=== PATIENT | female | born 1970 | race Caucasian/White ===

== ENCOUNTER → 2016-09-12 | Outpatient (CLI) | payer OTHER ==
--- NOTE | 2016-09-12 14:03 | KCIC ---
Diagnostic digital mammograms left breast: Reason for examination: Small nodular parenchymal density on screening mammogram. Comparison is made to previous exam dated 08/27/2016. Coned compression views were obtained in CC and obliques projections. A small parenchymal density persists in the superior left breast approximately 6 centimeters from the nipple and appears to measure approximately 1.4 centimeters in greatest dimension. This contains no calcifications. Further evaluation with ultrasound will follow. Impression: Small nodule in the anterior superior left breast on oblique projection probably around the 12 o'clock position. Ultrasound to follow. BI-RADS category 0: Incomplete. Ultrasound to follow. Left breast ultrasound: Ultrasound examination of the left breast was performed of the entire breast including the retroareolar and axillary regions. In the 12 o'clock position 6 centimeters from the nipple, there appears to be a hypoechoic circumscribed lesion measuring 1.3 centimeters in greatest dimension with some mild posterior acoustic enhancement. The appearance 6 suggests a small fibroadenoma. In the 11 o'clock position 5 centimeters from the nipple, there is a 6.1 millimeter fibrocystic type lesion present. No other focal or suspicious lesions are seen. No abnormal lymph nodes are seen in the axilla. Impression: Small benign appearing nodular densities at the 12 o'clock position 6 centimeters from the nipple probably representing a fibroadenoma and in the 11 o'clock position 5 centimeters from the nipple probably representing a small fibrocystic lesion. No suspicious lesions seen. Recommend six-month sonographic followup. BI-RADS category 3: Probably benign. This patient's information has been entered into a reminder system for the patient to be notified with the results of this examination and a target date for her next mammograms. Electronically signed by: Stephany Velázquez MD (Sep 12, 2016 14:01:48)
== END | disposition home or self-care (01) ==
LOC: KCIC MAMMO 09:41
PROVIDERS: ATTEND Preventive Medicine Public Health & General Preventive Medicine
DX: R92.8 Other abnormal and inconclusive findings on diagnostic imaging of breast (principal); N63 Unspecified lump in breast
CPT/HCPCS: 76641; G0206

== ENCOUNTER → 2017-03-29 | Outpatient (CLI) | payer OTHER ==
--- NOTE | 2017-04-17 13:32 | KCIC ---
Left breast ultrasound: Reason for examination: Follow-up nodules. Comparison is made to previous study dated 09/12/2016. Ultrasound examination of the left breast and left axilla was performed. At the 11:00 position 5 cm from the nipple, there continues to be a small 4.8 mm hypoechoic nodule which shows a slight decrease in overall size. In the 12:00 position 6 cm from the nipple, there continues to be a small hypoechoic nodule measuring 1.1 x 0.95 cm in greatest dimension. This shows a slight decrease in overall size. No new cystic or solid lesions are seen. No abnormal appearing lymph nodes are seen in the left axilla. IMPRESSION: Continued presence of small nodules at the 11:00 and 12:00 positions which both show a slight decrease in overall size. These are again consistent with benign fibrocystic lesions or fibroadenoma. No suspicious lesions are seen. Recommend routine mammographic follow-up. BI-RADS Category 2: Benign. "Our facility is accredited by the [employer] Mammography Program." This patient's information has been entered into a reminder system for the patient to be notified with the results of her examination and a target date for the next mammogram. Electronically signed by: Adela Velázquez MD (04/17/2017 1:29 PM) [facility]
== END | disposition home or self-care (01) ==
LOC: KCIC US 12:25
PROVIDERS: ATTEND Preventive Medicine Public Health & General Preventive Medicine
DX: R92.8 Other abnormal and inconclusive findings on diagnostic imaging of breast (principal)
CPT/HCPCS: 76641

== ENCOUNTER → 2017-10-07 | Outpatient (CLI) | payer OTHER | END | disposition home or self-care (01) | LOC: KCIC MAMMO 12:00 | DX: Z12.31 Encounter for screening mammogram for malignant neoplasm of breast (principal); N63.10 Unspecified lump in the right breast, unspecified quadrant | CPT/HCPCS: 77063; 77067 ==

== ENCOUNTER → 2017-10-08 | Outpatient (CLI) | payer OTHER | END | disposition home or self-care (01) | LOC: KCIC US 11:37 | DX: N63.10 Unspecified lump in the right breast, unspecified quadrant (principal) | CPT/HCPCS: 76641 ==

== ENCOUNTER → 2018-04-24 | Outpatient (CLI) | payer OTHER ==
--- NOTE | 2018-04-25 14:37 | KCIC ---
CLINICAL INDICATION: ANGELA FARRELL, who is 48 years of age, presents for short-term imaging followup of a probably benign finding in the right breast. COMPARISON: Prior mammographic imaging dating back to 10/08/2017, 10/07/2017, 03/29/2017, 09/12/2016, 08/27/2016 TECHNIQUE: Full-field to the CC and MLO views of the right breast were obtained using digital technique. Full-field CC and MLO tomographic images of the right breast were also obtained using digital technique. BREAST COMPOSITION: Breast density category C: The breast tissue is heterogenously dense, which could obscure detection of small masses. MAMMOGRAM FINDINGS: The previously seen retroareolar nodule is not well delineated by mammography. Architectural distortion is seen in the medial and superior right breast best seen on the tomographic views approximately 9 cm from the nipple. No suspicious microcalcifications are seen. The visualized axilla appears unremarkable. Ultrasound was therefore performed to further evaluate a retroareolar nodule and the architectural distortion in the medial superior right breast. ULTRASOUND FINDINGS: ULTRASOUND FINDINGS: Targeted ultrasound of the mammographic area of concern was performed. 9:00 position, 1 cm from the nipple: A near anechoic mass of circumscribed margins and internal homogeneous low level echoes is present with parallel orientation and is of oval/round shape. There is no internal vascularity on Doppler interrogation. It demonstrates posterior acoustic enhancement and measures 5 x 3 x 4 mm, previously 3 x 3 x 3 mm. 9:30 position, 4.5 cm from the nipple: Parenchymal tissue of normal echotexture is present. The previously seen 3 mm hypoechoic lesion is no longer seen and has likely resolved. 8:00 position, 4.5 cm from the nipple: Parenchymal tissue of normal echotexture, likely normal fibrocystic change. Upper outer right breast, posterior depth: Parenchymal tissue of normal echotexture is present. IMPRESSION: 1. Right breast probably benign asymmetry/architectural distortion for which follow up is recommended. 2. The retroareolar hypoechoic structure, likely complex cyst is grossly stable. RECOMMENDATION: In the absence of new clinical symptoms or change in physical exam, short term follow up diagnostic examination with 3-D CC and MLO views of the right breast with right breast ultrasound is recommended in 6 months to assess for interval stability. At this time she will be due for screening evaluation of the contralateral breast. BI-RADS 3: PROBABLY BENIGN Electronically signed by: Richie Richardson MD (04/25/2018 2:33 PM) [facility]
== END | disposition home or self-care (01) ==
LOC: KCIC MAMMO 12:56
PROVIDERS: ATTEND Preventive Medicine Public Health & General Preventive Medicine
DX: R92.8 Other abnormal and inconclusive findings on diagnostic imaging of breast (principal)
CPT/HCPCS: 76641; 77065; G0279; 77061

== ENCOUNTER → 2019-07-16 | Outpatient (CLI) | payer OTHER ==
--- NOTE | 2019-07-16 16:02 | KCIC ---
Bilateral diagnostic digital mammograms with 3-D tomosynthesis: Reason for examination: Follow-up nodule and follow-up architectural distortion. Comparison is made to previous studies dated back to 08/27/2016. Bilateral mammograms in CC and oblique projections were obtained with 2-D imaging and 3-D tomosynthesis imaging on a Siemens Inspiration unit and reviewed on the workstation. Interpretation was made with the benefit of CAD. The skin and nipples show no abnormalities. No abnormal axillary lymph nodes are seen. The breast parenchyma is extremely dense. (Breast density: Category D.) There are no dominant masses, suspicious calcifications or architectural distortion. Impression: No evidence of malignancy. Ultrasound to follow. Your patient's mammogram demonstrates that she has dense breast tissue (breast density category C or D), which could hide abnormalities, and if she has other risk factors for breast cancer that have been identified, she might benefit from supplemental screening tests that may be suggested by you as her ordering physician. Dense breast tissue, in and of itself, is a relatively common condition. Therefore, this information is not provided to cause undue concern, but rather to raise your awareness and to promote discussion with your patient regarding the presence of other risk factors, in addition to dense breast tissue. Your patient's mammography results will be sent to her. BI-RAD Category 0: Incomplete. Needs additional imaging evaluation. Right breast ultrasound: Comparison is made to previous study dated 04/24/2018 and 10/08/2017. Right whole breast ultrasound including evaluation of all 4 quadrants and the retroareolar and axillary regions of the right breast was performed. There is ductal ectasia in the retroareolar 12:00 position. There is a small 10 x 6.3 mm hypoechoic lesion with fibrocystic appearance at the 9:30 position 7 cm from the nipple. No other cystic or solid lesions are seen. No abnormal appearing lymph nodes are seen in the axilla. IMPRESSION: New 1 cm fibrocystic lesion at the 9:30 position 7 cm from the nipple. No suspicious abnormality seen. Recommend 6 month follow-up with ultrasound. BI-RADS Category 3: Probably Benign. "Our facility is accredited by the [employer] Mammography Program." This patient's information has been entered into a reminder system for the patient to be notified with the results of her examination and a target date for the next mammogram. Electronically signed by: Adela Velázquez MD (07/16/2019 3:59 PM) [facility]
== END | disposition home or self-care (01) ==
LOC: KCIC MAMMO 09:05
PROVIDERS: ATTEND Preventive Medicine Public Health & General Preventive Medicine
DX: N60.41 Mammary duct ectasia of right breast (principal); N64.89 Other specified disorders of breast
CPT/HCPCS: 76641; 77066; G0279; 77062

== ENCOUNTER → 2020-06-16 | Outpatient (CLI) | payer OTHER ==
--- NOTE | 2020-06-16 10:47 | KCIC ---
EXAMINATION: Magnetic resonance imaging (MRI) of the brain and brainstem without contrast 06/16/2020 8:00 AM HISTORY: Paresthesia. New onset of burning sensation in extremities. Visual changes. TECHNIQUE: Multiplanar multi-weighted MRI of the brain and brainstem was performed without intravenous contrast using the general brain protocol. COMPARISON: None available. FINDINGS: The scalp and calvarium are normal. The superior sagittal sinus demonstrates normal venous flow. The corpus callosum is normal in shape and signal intensity. The posterior fossa is unremarkable. The pituitary and sella are normal. The brainstem and craniocervical junction are unremarkable. Diffusion weighted images reveal no hyperintensities to suggest acute cerebral infarction. The susceptibility weighted sequences reveal no evidence of acute or chronic hemorrhage. The ventricles are normal in size and position without evidence of hydrocephalus. Mild mucosal thickening of the left ethmoid air cells. Mastoid air cells are well aerated. The orbits appear normal. Normal flow voids are demonstrated in the carotid arteries and basilar artery. IMPRESSION: No evidence for acute or subacute ischemia. No suspicious intracranial abnormality identified. Electronically signed by: Basia Vega MD (06/16/2020 10:44 AM) [facility]
--- NOTE | 2020-06-16 10:56 | KCIC ---
EXAMINATION: Magnetic resonance imaging (MRI) of the cervical spine without contrast 06/16/2020 8:45 AM HISTORY: Paresthesia. New onset burning sensation in extremities. Visual changes. TECHNIQUE: Multiplanar multi-weighted MRI of the cervical spine was performed without intravenous contrast using the standard cervical spine protocol. Contrast information: None administered COMPARISON: None available. FINDINGS: The alignment of the cervical spine is normal. Vertebral bodies demonstrate normal signal intensity on all sequences. No acute fracture is identified; however, if trauma is suspected, a CT scan would be a more sensitive examination for fractures. The craniocervical junction is normal. The visualized portions of the skull base and the posterior fossa are normal. The spinal cord demonstrates normal signal intensity on all sequences. Mild disc height loss at C5-C6 and C6-C7 with disc bulges. No soft tissue abnormality is identified. Normal signal voids are present in the vertebral arteries. C2-C3: The disk is normal in configuration. There is no facet arthropathy. There is no uncovertebral joint disease. There is no neuroforaminal stenosis. There is no spinal canal stenosis. C3-C4: The disk is normal in configuration. There is no facet arthropathy. There is no uncovertebral joint disease. There is no neuroforaminal stenosis. There is no spinal canal stenosis. C4-C5: The disk is normal in configuration. There is no facet arthropathy. There is no uncovertebral joint disease. There is no neuroforaminal stenosis. There is no spinal canal stenosis. C5-C6: There is posterior discussed by complex with left central disc extrusion. There is no facet arthropathy. There is no uncovertebral joint disease. There is mild left neuroforaminal stenosis. There is mild spinal canal stenosis. C6-C7: There is a circumferential disc bulge. There is no facet arthropathy. There is mild left uncovertebral joint disease. There is mild left neuroforaminal stenosis. There is mild spinal canal stenosis. C7-T1: The disk is normal in configuration. There is no facet arthropathy. There is no uncovertebral joint disease. There is no neuroforaminal stenosis. There is no spinal canal stenosis. IMPRESSION: Mild degenerative changes of the cervical spine as described in detail above. Electronically signed by: Basia Vega MD (06/16/2020 10:53 AM) [facility]
--- NOTE | 2020-06-16 16:44 | KCIC ---
Bilateral diagnostic digital mammograms with 3-D tomosynthesis: Reason for examination: Follow-up nodules. Comparison is made to previous studies dated 07/16/2019 and 04/24/2018. Bilateral mammograms in CC and oblique projections were obtained with 2-D imaging and 3-D tomosynthesis imaging on a Siemens Inspiration unit and reviewed on the workstation. Interpretation was made with the benefit of CAD. The skin and nipples show no abnormalities. No abnormal axillary lymph nodes are seen. The breast parenchyma is extremely dense. (Breast density: Category D.) There appear to be 2 small nodular parenchymal densities in the right breast. Ultrasound will follow. There are no suspicious calcifications or architectural distortion. Impression: Small nodular parenchymal densities in the right breast. Ultrasound to follow. Your patient's mammogram demonstrates that she has dense breast tissue (breast density category C or D), which could hide abnormalities, and if she has other risk factors for breast cancer that have been identified, she might benefit from supplemental screening tests that may be suggested by you as her ordering physician. Dense breast tissue, in and of itself, is a relatively common condition. Therefore, this information is not provided to cause undue concern, but rather to raise your awareness and to promote discussion with your patient regarding the presence of other risk factors, in addition to dense breast tissue. Your patient's mammography results will be sent to her. BI-RAD Category 0: Incomplete. Needs additional imaging evaluation. Right breast ultrasound: Comparison is made to previous study dated 07/18/2019. Ultrasound examination of the right breast and axilla was performed. At the 2:00 position 4 cm from the nipple, there is a small I 0.7 mm hypoechoic fibrocystic lesion with no vascularity. At the 9:00 position 4.5 cm from the nipple, there is a 3 mm hypoechoic fibrocystic lesion. At the 9:00 position 9 cm from the nipple, there are 2 small hypoechoic nodules in parallel orientation with benign fibrocystic appearances measuring 2.7 mm in greatest dimensions. In the 9:30 position 7 cm from the nipple, there is a 5.7 mm hypoechoic fibrocystic lesion. No suspicious-appearing nodules are seen. No abnormal appearing lymph nodes are seen in the right axilla. IMPRESSION: Several small benign-appearing fibrocystic type lesions which are subcentimeter in size. No suspicious lesions are seen. Recommend continued 6 month follow-up with ultrasound. BI-RADS Category 3: Probably Benign. "Our facility is accredited by the [employer] Mammography Program." This patient's information has been entered into a reminder system for the patient to be notified with the results of her examination and a target date for the next mammogram. Electronically signed by: Adela Velázquez MD (06/16/2020 4:41 PM) [id number]
== END ==
LOC: KCIC MRI 08:00
PROVIDERS: ATTEND Preventive Medicine Public Health & General Preventive Medicine
DX: R92.8 Other abnormal and inconclusive findings on diagnostic imaging of breast (principal); R20.2 Paresthesia of skin; N63.10 Unspecified lump in the right breast, unspecified quadrant; M47.812 Spondylosis without myelopathy or radiculopathy, cervical region
CPT/HCPCS: 70551; 72141; 76641; 77066; G0279; 77062

== ENCOUNTER → 2020-10-25 | Outpatient (CLI) | payer OTHER ==
[~2020-10-25] MED LIST: IOHEXOL 240 MG/ML 50ML VIAL. PO ONE; IOHEXOL 300 MG/ML 100ML VIAL. IV ONE
--- NOTE | 2020-10-25 11:35 | KCIC ---
CT STUDY OF THE CHEST AND ABDOMEN AND PELVIS WITH CONTRAST Clinical indications: Elevated beta-hCG level in a perimenopausal female patient. Evaluation for amrita gnancy or a germ cell tumor. TECHNIQUE: After IV infusion of 89 cc of Omnipaque 300, helical CT scanning of the chest and abdomen and pelvis was performed. GI contrast was administered per mouth. PQRS compliance Statement One or more of the following individualized dose reduction techniques were utilized for this study: 1. Automated exposure control 2. Adjustment of the mA and/or kV according to patient size 3. Use of iterative reconstruction technique COMPARISON: None available. CHEST CT: No enlarged thoracic lymphadenopathy is evident. No mediastinal mass is evident. No focal a neurysmal dilatation or dissection of the thoracic aorta is seen. Heart size is normal and no pericar dial effusion is seen. There is mild biapical nodular scarring. No lung mass or consolidative lung infiltrate is seen. No pleural effusion or pneumothorax is seen. T he proximal bronchial tree is patent. No lytic process is evident. IMPRESSION: No mediastinal mass. Unremarkable chest CT. ABDOMEN AND PELVIS CT: The liver and spleen and pancreas and gallbladder are normal. No extra hepatic biliary ductal dilatation is seen. No adrenal mass is evident. Both kidneys are normal without hydro nephrosis or hydroureter. No urinary tract stone is evident. Urinary bladder wall is smooth. No uteri ne mass is evident. No abnormal thickening of the endometrial canal is seen. No ovarian mass or domin ant ovarian cyst is seen. No focal aneurysmal dilatation of the abdominal aorta is seen. No enlarged abdominal or pelvic lymphadenopathy is evident. No bowel wall thickening is evident. No soft tissue m ass is evident. No mesenteric inflammation or free air or free fluid is seen. No bowel obstruction is evident. The terminal ileum and appendix are unremarkable. No lytic process is seen. IMPRESSION: No significant abnormality. No soft tissue mass or abnormal enlarged lymphadenopathy is s een. Electronically signed by: Ramo Branch MD (10/25/2020 11:33 AM) [id number]
== END ==
LOC: KCIC CT 08:29
PROVIDERS: ATTEND Obstetrics & Gynecology Gynecologic Oncology
DX: E34.9 Endocrine disorder, unspecified (principal)
CPT/HCPCS: 71260; 74177; Q9966; Q9967

== ENCOUNTER → 2021-09-13 | Outpatient (CLI) | payer OTHER ==
--- NOTE | 2021-09-13 14:34 | KCIC ---
Bilateral diagnostic digital mammograms with 3-D tomosynthesis: Reason for examination: Follow-up right breast nodules. Comparison is made to previous studies dated back to 08/27/2016. Bilateral mammograms in CC and oblique projections were obtained with 2-D imaging and 3-D tomosynthes is imaging on a Siemens Inspiration unit and reviewed on the workstation. Interpretation was made wit h the benefit of CAD. The skin and nipples show no abnormalities. No abnormal axillary lymph nodes are seen. The breast par enchyma is extremely dense. (Breast density: Category D.) There continue to be small areas of nodular parenchymal density in the right breast which are stable. There appears to be some new nodular densi ty posterior laterally in the left breast. No suspicious calcifications are seen. Impression: Continued presence of some nodular asymmetry in the right breast. Nodularity suggested posterior late rally in the left breast. Ultrasound to follow. Your patient's mammogram demonstrates that she has dense breast tissue (breast density category C or D), which could hide abnormalities, and if she has other risk factors for breast cancer that have bee n identified, she might benefit from supplemental screening tests that may be suggested by you as her ordering physician. Dense breast tissue, in and of itself, is a relatively common condition. Therefo re, this information is not provided to cause undue concern, but rather to raise your awareness and t o promote discussion with your patient regarding the presence of other risk factors, in addition to d ense breast tissue. Your patient's mammography results will be sent to her. BI-RAD Category 0: Incomplete. Needs additional imaging evaluation. Bilateral breast ultrasound: Comparison is made to previous ultrasound examinations dated 06/16/2020 and 07/16/2019. Ultrasound examination of the breasts and axilla was performed bilaterally. In the right breast, there continues to be a 6.5 x 4.1 mm hypoechoic fibrocystic lesion at the 2:00 p osition 4 cm from the nipple which is stable. There is a small 2.9 mm hypoechoic fibrocystic lesion a t the 9:00 position 4.5 cm from the nipple. There are no new cystic or solid lesions are seen. No abn ormal lymph nodes are seen in the right axilla. In the left breast, there is dense fibroglandular tissue. No discrete cystic or solid nodules are see n. No abnormal lymph nodes are seen in the left axilla. IMPRESSION: Stable fibrocystic nodule at the 2:00 position of the right breast. Additional small fibrocystic nodu le at the 9:00 position. No suspicious abnormalities are seen. Recommend routine mammographic follow- up. BI-RADS Category 2: Benign. "Our facility is accredited by the [employer] Mammography [employer]." This patient's information has been entered into a reminder system for the patient to be notified wit h the results of her examination and a target date for the next mammogram. Electronically signed by: Adela Velázquez MD (09/13/2021 2:31 PM) [email or web address]
== END ==
LOC: KCIC MAMMO 09:41
PROVIDERS: ATTEND Preventive Medicine Public Health & General Preventive Medicine
DX: N63.12 Unspecified lump in the right breast, upper inner quadrant (principal); N64.89 Other specified disorders of breast
CPT/HCPCS: 76641; 77066; G0279; 77062